=== PATIENT | female | born 1960 | race Caucasian/White ===

== ENCOUNTER 2016-05-17 07:01 | Day surgery (SDC) | payer OTHER ==
[~2016-05-17 07:01] MED LIST: Lactated Ringers 1,000 ML IV SCH; Lidocaine 1%/Sod Bicarbonate in NS 8.4% 1 ML Syringe IV PRN; Sodium Chloride 0.9% 10 ML Syringe FLUSH PRN
[2016-05-17] MEDS ORDERED: Ondansetron 4 MG/2 ML SDV ONE (07:20)
[2016-05-17] MEDS ORDERED: Propofol 200 MG/20 ML SDV ONE ×3 (07:21→08:16)
[2016-05-17] MEDS ORDERED: fentaNYL 250 MCG/5 ML SDV ONE (07:21)
[2016-05-17] MEDS ORDERED: Midazolam 1 MG/ML 2 ML SDV ONE (07:21)
[2016-05-17] MEDS ORDERED: Scopolamine 1.5 MG Transdermal Patch TRDERM ONE (07:22)
[2016-05-17] MEDS ORDERED: ceFAZolin 1 GM Vial ONE (07:24)
--- NOTE | 2016-05-17 07:27 | PCM.PREANE ---
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 Respiratory: Reports: no symptoms Cardiovascular: Reports: blood pressure problem GI: Reports: no symptoms Other: Reports: easy bruising, depression, anxiety - PHYSICAL ASSESSMENT HR: 79 O2 Sat by Pulse Oximetry: 94 RR: 16 BP: 133/73 Temp: 98.3 F Height: 5 ft 5 in Weight: 89.176 kg NPO Status Date: 05/16/16 (sip of water with am pills) NPO Status Time: 21:30 ASA Class: 2 Mental Status: alert & oriented x3 Dentition: Reports: normal dentition Thyro-Mental Finger Breadths: 3 Mouth Opening Finger Breadths: 3 ROM/Head Extension: full Respiratory Status: lungs clear to auscultation bilaterally Cardiovascular Status: regular rate & rhythm, normal S1, S2, no murmur, blood pressure WNL - LAB Values: hgb 12.7 this am - ALLERGIES Allergies/Adverse Reactions: Allergies Allergy/AdvReac Type Severity Reaction Status Date / Time adhesive Allergy Cannot Verified 05/14/16 12:42 Remember latex Allergy Cannot Verified 05/14/16 12:42 Remember - BLOOD Blood Available: No - ANESTHESIA PLAN Preop Beta Elpidio: No Anesthesia Type Planned: general anesthesia - ACKNOWLEDGEMENTS Pt an appropriate candidate for the planned anesthesia: Yes Alternatives and risks of anesthesia discussed w pt/guardian: Yes Pt/Guardian understands and agree with anesthesia plan: Yes PreAnesthesia Questionnaire HEENT History: Reports: Impaired vision Cardiovascular History: Reports: Hypertension Other Cardiovascular History: palpatations, mitral valve prolapse Respiratory History: Reports: None Gastrointestinal History: Reports: GERD Genitourinary History: Reports: Other (see below) Other Genitourinary History: overactive bladder, interstitial cystitis Other OB/BYN History: Ovarian cyst, enlarged uterus, lumpectomy, vaginal irritaiton, genital warts, ovarian cryosurgery, hot flashes Other Musculoskeletal History: herniated disc Neurological History: Reports: None Psychiatric History: Reports: Depression, Other (see below) Other Psychiatric History: fatigue Endocrine/Metabolic History: Reports: None Hematologic History: Reports: None Immunologic History: Reports: None Oncologic (Cancer) History: Reports: Breast Dermatologic History: Reports: Other (see below) Other Dermatologic History: skin lesion, wart removal - Past Surgical History Head Surgeries/Procedures: HEENT Surgical History: Reports: Oral surgery GI Surgical History: Reports: Colonoscopy, Hernia, inguinal Female Surgical History: Reports: Breast reduction Other Musculoskeletal Surgeries/Procedures:: herniated disc repair x2, L ankle surgery with hardware, R wrist ganglion excision Oncologic Surgical History: Reports: Lumpectomy - SUBSTANCE USE Smoking Status *Q: Never Smoker Tobacco Use Within Last Twelve Months: No Second Hand Smoke Exposure: No Days Per Week of Alcohol Use: 0 Recreational Drug Use History: No - HOME MEDS Home Medications: Home Meds Tamoxifen [Nolvadex] 10 mg PO BID 11/29/14 [History] Zolpidem [Ambien] 10 mg PO DAILY PRN 11/29/14 [History] Hydrochlorothiazide 12.5 mg PO DAILY 12/04/14 [History] Venlafaxine [Effexor XR] 225 mg PO DAILY 12/04/14 [History] Ascorbic Acid [Vitamin C] 1 tab PO DAILY 05/14/16 [History] Cholecalciferol (Vitamin D3) [Vitamin D3] 1 tab PO DAILY 05/14/16 [History] Indomethacin [Indocin] 1 cap PO TID PRN 05/14/16 [History] Oxybutynin Chloride [Oxybutynin Chloride ER] 1 tab PO DAILY 05/14/16 [History] - CURRENT (IN HOUSE) MEDS Current Meds: Current Medications Lactated Ringer's (Ringers, Lactated) 1,000 mls @ 125 mls/hr IV ASDIRECTED MICHAEL Stop: 05/17/16 23:00 Lidocaine/Sodium Bicarbonate (Buffered Lidocaine 1% In Ns 8.4%) 0.25 ml IV ONETIME PRN PRN Reason: Prior to IV Start Stop: 05/17/16 18:00 Sodium Chloride (Saline Flush) 10 ml FLUSH ASDIRECTED PRN PRN Reason: Keep Vein Open Stop: 05/17/16 18:00 Discontinued Medications Cefazolin Sodium (Ancef) Confirm Administered Dose 2 gm .ROUTE .STK-MED ONE Stop: 05/17/16 07:25 Fentanyl (Sublimaze) Confirm Administered Dose 250 mcg .ROUTE .STK-MED ONE Stop: 05/17/16 07:22 Midazolam HCl (Versed 1 Mg/Ml) Confirm Administered Dose 2 mg .ROUTE .STK-MED ONE Stop: 05/17/16 07:22 Ondansetron HCl (Zofran) Confirm Administered Dose 4 mg .ROUTE .STK-MED ONE Stop: 05/17/16 07:21 Propofol (Diprivan 20 Ml) Confirm Administered Dose 200 mg .ROUTE .STK-MED ONE Stop: 05/17/16 07:22
[2016-05-17] MEDS ORDERED: Bupivacaine 0.5% 30 ML SDV ONE (07:32)
[2016-05-17] MEDS ORDERED: Rocuronium 50 MG/5 ML Vial ONE (07:42)
[2016-05-17] MEDS ORDERED: Dexamethasone 4 MG/ML SDV ONE (07:57)
[2016-05-17] MEDS ORDERED: diphenhydrAMINE 50 MG/ML SDV ONE (07:58)
[2016-05-17] MEDS ORDERED: Ondansetron 4 MG/2 ML SDV IVPUSH PRN (08:05)
[2016-05-17] MEDS ORDERED: fentaNYL 100 MCG/2 ML SDV IVPUSH PRN (08:05)
--- NOTE | 2016-05-17 08:41 | PCM.OPNOTE ---
- General Post-Op/Procedure Note Date of Surgery/Procedure: 05/17/16 Operative Procedure(s): Dilatation curettage, hysteroscopy (43549),comedone removal, (82128) Pre Op Diagnosis: Abnormal ultrasound, enlarged uterus, comedone Anesthesia Technique: General ET tube Primary Surgeon: Jean-Paul Hernandez Anesthesia Provider: Gavi Reynoso Fluid Replacement, Intraop: 700 Output, Urine Amount: 0 EBL in mLs: 3 Drain/Tube Comments:: None Complications: None Condition: Good Free Text/Narrative:: Patient was transported to operating room #1, placed under general anesthesia in the low dorsal, position with endotracheal intubation. Prepared and draped in sterile fashion. Timeout performed. Examination under anesthesia revealed approximately 10-12 week size uterus. The patient. Uterus sounded to 13 cm, dilated to accommodate the hysteroscope. Examination revealed what appeared to be atrophic endometrium with 6 images taken image 001, shows right tubal ostia area and some scarring of the endometrium. Image, 002, shows the area of left tubal ostia, which is not visualized, 003, is the fundus of the endometrium. Image, 004, shows a overview of the endometrial cavity in its 005 shows the proximal portion of the endocervical canal and the images 006, shows the distal portion in the cervical canal. Initial curetting was obtained, and sent to pathology for tissue . Sponge, and, pack, and splint sharp count correct, x2. SCDs were in place and functioning. Prior surgery. The patient had received Ancef 2 g intravenously prior surgery. Comedone of the mons, was removed by injecting 1 mL of 0.5% lidocaine for additional. Postop pain management and an elliptical incision made, removing the entire, bone. The suture. 3-0 Monocryl used to close . The skin. Dermabond applied. Patient transported post anesthesia care unit in satisfactory condition
--- NOTE | 2016-05-17 08:41 | PCM.POSTAN ---
POST ANESTHESIA ASSESSMENT - MENTAL STATUS Mental Status: alert, oriented - VITAL SIGNS Pulse Rate: 76 SaO2: 92 Resp Rate: 18 Blood Pressure: 142/82 Temperature: 97 F - RESPIRATORY Respiratory Status: respiratory rate WNL, airway patent, O2 saturation stable, supplemental oxygen - CARDIOVASCULAR CV Status: pulse rate WNL, blood pressure stable - GASTROINTESTINAL GI Status: no symptoms - PAIN Pain Score: 0 - POST OP HYDRATION Hydration Status: adequate & stable
[2016-05-17] MEDS ORDERED: Meperidine PF 50 MG/ML Syringe IVPUSH PRN (09:15)
[2016-05-17 11:00] VITALS: BP 139/78
--- NOTE | 2016-05-17 13:07 | PCM48HPAN ---
Post Anesthesia Note - EVALUATION WITHIN 48HRS OF ANESTHETIC Vital Signs in Normal Range: Yes Patient Participated in Evaluation: Yes Respiratory Function Stable: Yes Airway Patent: Yes Cardiovascular Function Stable: Yes Hydration Status Stable: Yes Pain Control Satisfactory: Yes Nausea and Vomiting Control Satisfactory: Yes Mental Status Recovered: Yes
== END 2016-05-17 11:00 | disposition home or self-care (01) ==
LOC: JD.SDS 07:01
PROVIDERS: ATTEND Obstetrics & Gynecology
PROC: 0UDB8ZZ Extraction of Endometrium, Via Natural or Artificial Opening Endoscopic (ICD-10-PCS; principal; 2016-05-17)
DX: L72.0 Epidermal cyst (principal); N85.2 Hypertrophy of uterus; I10 Essential (primary) hypertension; N32.81 Overactive bladder; Z85.3 Personal history of malignant neoplasm of breast; Z79.899 Other long term (current) drug therapy; Z91.040 Latex allergy status; Z91.048 Other nonmedicinal substance allergy status; Z98.890 Other specified postprocedural states
CPT/HCPCS: 11100; 36415; 58558; 85025; 88305; A9270; J0690; J1100; J1200; J2250; J2405; J3010; J7120; 00940; J2704

== ENCOUNTER 2017-01-11 08:25 | Observation (INO) | payer OTHER ==
--- NOTE | 2017-01-11 09:16 | PCM.PREANE ---
Preanesthetic Assessment - Procedure Proposed Procedure: TV[facility] - Anesthesia/Transfusion/Family Hx Anesthesia History: Prior Anesthesia Without Reaction Type of Anesthesia Reaction: Excessive Nausea/Vomiting Family History of Anesthesia Reaction: No Transfusion History: No Prior Transfusion(s) - Review of Systems General: No Symptoms Pulmonary: No Symptoms Cardiovascular: Other (HTN) Gastrointestinal: Other (GERD ) Neurological: No Symptoms Other: Reports: Easy Bruising, Depression - Physical Assessment NPO Status Date: 01/10/17 NPO Status Time: 20:30 Pulse: 85 O2 Sat by Pulse Oximetry: 92 Respiratory Rate: 16 Blood Pressure: 137/76 Temperature: 37.2 C Height: 1.65 m Weight: 82 kg ASA Class: 2 Mental Status: Alert & Oriented x3 Airway Class: Mallampati = 2 Dentition: Reports: Normal Dentition Thyro-Mental Finger Breadths: 3 Mouth Opening Finger Breadths: 3 ROM/Head Extension: Full Lungs: Clear to Auscultation, Normal Respiratory Effort Cardiovascular: Regular Rate, Regular Rhythm - Lab Values: Laboratory Last Values WBC 4.96 K/mm3 (3.98-10.04) 01/11/17 08:55 RBC 4.84 M/mm3 (3.98-5.22) 01/11/17 08:55 Hgb 13.4 gm/L (11.2-15.7) 01/11/17 08:55 Hct 41.5 % (34.1-44.9) 01/11/17 08:55 MCV 85.7 fl (79.4-94.8) 01/11/17 08:55 MCH 27.7 pg (25.6-32.2) 01/11/17 08:55 MCHC 32.3 g/dl (32.2-35.5) 01/11/17 08:55 RDW Std Deviation 43.3 fL (36.4-46.3) 01/11/17 08:55 Plt Count 251 K/mm3 (182-369) 01/11/17 08:55 MPV 10.1 fl (9.4-12.3) 01/11/17 08:55 Neut % (Auto) 65.9 % (34.0-71.1) 01/11/17 08:55 Lymph % (Auto) 21.8 % (19.3-51.7) 01/11/17 08:55 [place] % (Auto) 9.9 % (4.7-12.5) 01/11/17 08:55 Eos % (Auto) 2.4 (0.7-5.8) 01/11/17 08:55 Baso % (Auto) 0.0 % (0.1-1.2) L 01/11/17 08:55 Neut # (Auto) 3.27 K/mm3 (1.56-6.13) 01/11/17 08:55 Lymph # (Auto) 1.08 K/mm3 (1.18-3.74) L 01/11/17 08:55 Bulloch # (Auto) 0.49 K/mm3 (0.24-0.36) H 01/11/17 08:55 Eos # (Auto) 0.12 K/mm3 (0.04-0.36) 01/11/17 08:55 Baso # (Auto) 0.00 K/mm3 (0.01-0.08) L 01/11/17 08:55 - Allergies Allergies/Adverse Reactions: Allergies Allergy/AdvReac Type Severity Reaction Status Date / Time latex Allergy Itching Verified 01/10/17 14:14 - Blood Blood Available: No Product(s) Available: None - Anesthesia Plan Pre-Op Medication Ordered: None - Acknowledgements Anesthesia Type Planned: General Anesthesia Pt an Appropriate Candidate for the Planned Anesthesia: Yes Alternatives and Risks of Anesthesia Discussed w Pt/Guardian: Yes Pt/Guardian Understands and Agrees with Anesthesia Plan: Yes PreAnesthesia Questionnaire HEENT History: Reports: Impaired Vision Cardiovascular History: Reports: Hypertension, Other (See Below) Other Cardiovascular History: palpatations, mitral valve prolapse Respiratory History: Reports: None Gastrointestinal History: Reports: GERD Genitourinary History: Reports: Other (See Below) Other Genitourinary History: overactive bladder, interstitial cystitis Other OB/BYN History: Ovarian cyst, enlarged uterus, lumpectomy, vaginal irritaiton, genital warts, ovarian cryosurgery, hot flashes, cystocele, rectocele, conedome, thickened endometrium Other Musculoskeletal History: herniated disc Neurological History: Reports: None Psychiatric History: Reports: Depression, Other (See Below) Other Psychiatric History: fatigue Endocrine/Metabolic History: Reports: None Hematologic History: Reports: None Immunologic History: Reports: None Oncologic (Cancer) History: Reports: Breast Dermatologic History: Reports: Other (See Below) Other Dermatologic History: skin lesion, wart removal - Past Surgical History HEENT Surgical History: Reports: Oral Surgery Respiratory Surgical History: Reports: None GI Surgical History: Reports: Colonoscopy, Hernia, Inguinal Female Surgical History: Reports: Breast Reduction, Cervical Cryotherapy, D&C Endocrine Surgical History: Reports: None Neurological Surgical History: Reports: Discectomy Other Musculoskeletal Surgeries/Procedures:: herniated disc repair x2, L ankle surgery with hardware, R wrist ganglion excision Oncologic Surgical History: Reports: Biopsy of Breast, Lumpectomy - SUBSTANCE USE Smoking Status *Q: Never Smoker Tobacco Use Within Last Twelve Months: No Second Hand Smoke Exposure: No Days Per Week of Alcohol Use: 0 Recreational Drug Use History: No - HOME MEDS Home Medications: Home Meds Zolpidem [Ambien] 10 mg PO DAILY PRN 11/29/14 [History] Hydrochlorothiazide 12.5 mg PO DAILY 12/04/14 [History] Venlafaxine [Effexor XR] 75 mg PO DAILY 12/04/14 [History] Ascorbic Acid [Vitamin C] 1 tab PO DAILY 05/14/16 [History] Cholecalciferol (Vitamin D3) [Vitamin D3] 1 tab PO DAILY 05/14/16 [History] Ibuprofen [Motrin] 600 mg PO Q6H PRN 01/10/17 [History] Venlafaxine HCl [Venlafaxine ER] 150 mg PO DAILY 01/10/17 [History] - CURRENT (IN HOUSE) MEDS Current Meds: Current Medications Lactated Ringer's (Ringers, Lactated) 1,000 mls @ 125 mls/hr IV ASDIRECTED MICHAEL Lidocaine/Sodium Bicarbonate (Buffered Lidocaine 1% In Ns 8.4%) 0.25 ml IV ONETIME PRN PRN Reason: Prior to IV Start Sodium Chloride (Saline Flush) 10 ml FLUSH ASDIRECTED PRN PRN Reason: Keep Vein Open Discontinued Medications Lidocaine/Epinephrine (Xylocaine 1% With Epinephrine 1:100,000) Confirm Administered Dose 20 ml .ROUTE .STK-MED ONE Stop: 01/11/17 08:52 Sodium Chloride (Normal Saline) Confirm Administered Dose 50 ml .ROUTE .STK-MED ONE Stop: 01/11/17 08:52
[2017-01-11] MEDS ORDERED: Scopolamine 1.5 MG Transdermal Patch TRDERM ONE (09:21)
[2017-01-11] MEDS ORDERED: fentaNYL 250 MCG/5 ML SDV ONE (09:54)
[2017-01-11] MEDS ORDERED: Propofol 200 MG/20 ML SDV ONE ×6 (09:54→11:15)
[2017-01-11] MEDS ORDERED: Midazolam 1 MG/ML 2 ML SDV ONE (09:54)
[2017-01-11] MEDS ORDERED: Rocuronium 50 MG/5 ML Vial ONE (09:55)
[2017-01-11] MEDS ORDERED: Ondansetron 4 MG/2 ML SDV ONE (09:55)
[2017-01-11] MEDS ORDERED: Dexamethasone 4 MG/ML SDV ONE (09:55)
[2017-01-11] MEDS ORDERED: Lidocaine 1% 4 ML ONE (09:55)
[2017-01-11] MEDS: Sodium Chloride 0.9% 50 ML SDV ONE ×2 (10:12→10:41)
[2017-01-11] MEDS: Lidocaine 1% with EPINEPHrine 1:100,000 20 ML MDV ONE ×2 (10:12→10:41)
[2017-01-11] MEDS ORDERED: HYDROmorphone 1 MG/ML Syringe ONE ×2 (10:41→11:03)
[2017-01-11] MEDS ORDERED: Lactated Ringers 1,000 ML ONE (10:50)
[2017-01-11] MEDS ORDERED: Ketorolac 30 MG/ML SDV ONE (10:50)
--- NOTE | 2017-01-11 11:45 | PCM.OPNOTE ---
- General Post-Op/Procedure Note Date of Surgery/Procedure: 01/11/17 Operative Procedure(s): Total vaginal hysterectomy with bilateral salpingo- oophorectomy 17992 (>250 g). Mid-Urethral sling 04138 Pre Op Diagnosis: Postmenopausal bleeding, cystocele, rectocele, stress urinary incontinence Post-Op Diagnosis: Same (once the uterus was removedenlarged uterus the cystocele and rectocele were not as prominent therefore no anterior or posterior colporrhaphy performed. Only mid urethral sling.) Anesthesia Technique: General ET Tube Primary Surgeon: Jean-Paul Hernandez Secondary Surgeon: Sy Landis Anesthesia Provider: Alexa Will Smoking Pipe Coater: Leonardo Burt Reason Smoking Pipe Coater Was Necessary: Difficult vaginal surgery, retraction, patient safety, and to decrease comorbidity and co-mortality Role of Smoking Pipe Coater: Retraction, Fluid Replacement, Intraop: 1,500 Output, Urine Amount: 50 EBL in mLs: 50 Drain/Tube Comments:: None Complications: None Condition: Good Free Text/Narrative:: Patient was transported to operating room #1 and placed under general anesthesia in the low dorsal lithotomy position and prepared and draped in sterile fashion examination under anesthesia revealed uterus to be approximately 10-12 weeks size no adnexal masses appreciated on examination under anesthesia. SCDs in place and functioning prior surgery Ancef 2 g given intravenously prior surgery. Timeout performed. The patient prepared and draped in a sterile fashion. Injecting approximately 20 mL of 0.25% lidocaine with epinephrine and multiple confluent areas around the cervix, the cervix was then circumscribed. Posterior colpotomy was made without difficulty and utilizing the Enseal crossclamping activating and incising creating pedicles and proceeding cephalad the uterosacral and cardinal ligaments were crossclamped activated in size the anterior colpotomy was then performed. Proceeding in a pedicle fashion cephalad crossclamping activating and incising the uterine vasculature was crossclamped. Because of the size of the uterus the morcellation was necessary and removing approximately half of the uterus in ( uterus estimated weight over 250 g) the triple pedicles were then crossclamped with the Enseal activated and the remaining portion of the uterus removed when morcellating the uterus a large endometrial polyp was encountered this was sent separately to pathology and when completing the morcellation additional large endometrial polyp was encountered as well. The left tube and ovary and right tube and ovary were then grasped triple pedicles were crossclamped with the Enseal activated and incised and removed. There was no bleeding from any area except posterior cuff. The posterior cuff was closed running locking suture of 0 Monocryl. Reinspection of the pedicles showed no additional bleeding pursestring suture for the peritoneum was utilized to close the peritoneum and incorporate the pedicles extraperitoneally. Anterior posterior cuff and approximated with running locking suture of 0 Monocryl. After removal of the uterus cystocele and rectocele were not as prominent decision was made to not perform anterior and posterior colporrhaphy. Mid urethral sling was performed marking the area left and right side at the inferior medial portion of the pelvis injecting 2 mL of 0.25% lidocaine with epinephrine for postoperative pain management and hemostasis small incision made to allow the trochars to be passed later. Grasping approximately 1.5 cm distal to the external urethral meatus and approximately 2 cm more proximal injecting the vaginal mucosa with 0.25% lidocaine with epinephrine 2-3 mL vertical incision made undermining the urethral vaginal mucosa until the area of approximation with the area of planned insertion of the trocar. Trocar was introduced on the left side first and then the right side confirming no "buttonhole" with the dissecting finger protecting the bladder and urethra. The mesh was placed utilizing large Hegar dilator #16 the mesh was cut at the skin line after confirming adequate placement and the mesh was not twisted or convoluted. The vaginal mucosa was then closed running suture of 3-0 Monocryl. Sponge needle pack asthma sharp count correct 2. 240 mL of water placed in the bladder to aid in patient's ability to void postoperatively and possibly go home. Patient was transported postanesthesia care unit in satisfactory condition. Talked with the patient's daughter ([place]).
--- NOTE | 2017-01-11 11:46 | PCM.POSTAN ---
POST ANESTHESIA ASSESSMENT - MENTAL STATUS Mental Status: Alert, Oriented - VITAL SIGNS Pulse Rate: 83 SaO2: 93 Resp Rate: 14 Blood Pressure: 145/75 Temperature: 36.9 C - RESPIRATORY Respiratory Status: Respiratory Rate WNL, Airway Patent, O2 Saturation Stable, Supplemental Oxygen - CARDIOVASCULAR CV Status: Pulse Rate WNL, Blood Pressure Stable - GASTROINTESTINAL GI Status: No Symptoms - PAIN Pain Score: 0 - POST OP HYDRATION Hydration Status: Adequate & Stable
[2017-01-11] MEDS ORDERED: fentaNYL 100 MCG/2 ML SDV IVPUSH PRN (11:47)
[2017-01-11] MEDS ORDERED: Ondansetron 4 MG/2 ML SDV IVPUSH PRN ×2 (11:47→17:04)
[2017-01-11] MEDS: HYDROmorphone 0.5 MG/0.5 ML Syringe IVPUSH PRN ×2 (14:09→16:08)
[2017-01-11] MEDS ORDERED: Acetaminophen/oxyCODONE 325-5 MG Tab PO PRN (14:42)
[2017-01-11] MEDS ORDERED: Zolpidem 10 MG Tab PO PRN (16:25)
--- NOTE | 2017-01-11 16:25 | PCM.SN ---
- Free Text/Narrative Note: Day of surgery Patient has had difficulty with keeping her pulse ox greater than low 80s on room air. On O2 1 L/m nasal she was between 80 and 90 and now increased to 2 L/ m nasal cannula O2 was running about 95. Chest is clear no abnormal breath sounds pulses normal blood pressure normal normal amount of pain in the abdomen for postop patient. We'll obtain CBC in a.m. Pulmonary toilet tonight and begin tomorrow morning. Incentive spirometer every hour while awake. Toradol 30 mg IV every 6 hours per total of 4 doses. The increase Percocet to 1-2 every 4 hours when necessary pain. If no pain relief from Percocet will give 10 of morphine and 25 of Vistaril IM every 6 hours when necessary pain not relieved by Percocet. No significant vaginal bleeding. IV fluids lactated Ringer's at 125 mL per hour. Needs to ambulate this evening. SCDs in place. Bladder scan after voiding if residual >100 continue Urecholine 10 mg po q6h.
[2017-01-11] MEDS ORDERED: hydrOXYzine HCl 25 MG/ML SDV IM PRN ×2 (17:04→21:00)
[2017-01-11] MEDS ORDERED: Morphine 10 MG/ML Syringe IM SCH (17:04)
[2017-01-11] MEDS: Lactated Ringers 1,000 ML IV SCH (17:29)
[2017-01-11] MEDS ORDERED: Ketorolac 15 MG/ML SDV IVPUSH PRN (18:00)
[2017-01-11] MEDS: Albuterol 0.021% 0.63 MG/3 ML Neb Soln NEB SCH ×2 (18:40→21:04)
[2017-01-11] MEDS: Acetaminophen/oxyCODONE 325-5 MG Tab PO PRN (19:15)
[2017-01-11] MEDS: Docusate Sodium 100 MG Cap PO SCH (21:15)
[2017-01-12] MEDS: Lactated Ringers 1,000 ML IV SCH (01:32)
[2017-01-12] MEDS ORDERED: Morphine 10 MG/ML Syringe IM SCH (03:00)
[2017-01-12] MEDS: Albuterol 0.021% 0.63 MG/3 ML Neb Soln NEB SCH (03:16)
--- NOTE | 2017-01-12 08:42 | PCM.SN ---
- Free Text/Narrative Note: Was stopped day #1 Afebrile still having problems keeping her O2 sats above 90% when sleeping. Consult requested to evaluate patient for possible sleep apnea and will also discontinue narcotics IM her IV in case this is contributing to the respiratory depression. No heavy vaginal bleeding no leg cramping ambulating. Voiding without difficulty. Will reevaluate at 1700 hrs. this evening.
[2017-01-12] MEDS ORDERED: Hydrochlorothiazide 12.5 MG Cap PO SCH (09:00)
[2017-01-12] MEDS ORDERED: Venlafaxine 75 MG Cap.ER PO SCH (09:00)
[2017-01-12] MEDS ORDERED: Albuterol 0.021% 0.63 MG/3 ML Neb Soln NEB SCH (09:00)
[2017-01-12] MEDS ORDERED: VENLAFAXINE HCL 150 MG PO SCH (09:00)
[2017-01-12] MEDS ORDERED: Albuterol 0.083% 2.5 MG/3 ML Neb Soln ONE (09:03)
[2017-01-12] MEDS ORDERED: Albuterol 0.083% 2.5 MG/3 ML Neb Soln NEB SCH (09:06)
[2017-01-12] MEDS: Docusate Sodium 100 MG Cap PO SCH (09:41)
[2017-01-12] MEDS: Acetaminophen/oxyCODONE 325-5 MG Tab PO PRN ×3 (09:41→17:20)
[2017-01-12 12:40] VITALS: BP 122/58
--- NOTE | 2017-01-12 13:19 | PCM.CONS ---
H&P History of Present Illness - General Date of Service: 01/12/17 Admit Problem/Dx: Admission Diagnosis/Problem Admission Diagnosis/Problem Hypoxemia requiring supplemental oxygen Anita is a 56yo female patient of Dr. Hernandez's, [employer], s/p total vaginal hysterectomy yesterday. She has had hypoxia on supplemental oxygen since surgery. Hospitalist service has been consulted for further evaluation and opinion of hypoxia postoperatively. She has no history of lung disease, no asthma, COPD, no smoking/tobacco history , no known hx of NANCY. She denies complaints of CP, palpitations, SOB, wheezing, coughing, sore throat or any other cardiopulmonary symptomatology. Dr. Ford is her PCP with [facility] in [place]. She is a full code status. Source of Information: Patient, Other (records review) History Limitations: Reports: No Limitations Uterine Pain Score (Numeric/FACES): 5 - Related Data Allergies/Adverse Reactions: Allergies Allergy/AdvReac Type Severity Reaction Status Date / Time latex Allergy Itching Verified 01/10/17 14:14 Home Medications: Home Meds Zolpidem [Ambien] 10 mg PO DAILY PRN 11/29/14 [History] Hydrochlorothiazide 12.5 mg PO DAILY 12/04/14 [History] Venlafaxine [Effexor XR] 75 mg PO DAILY 12/04/14 [History] Ascorbic Acid [Vitamin C] 500 mg PO DAILY 05/14/16 [History] Cholecalciferol (Vitamin D3) [Vitamin D3] 1,000 unit PO DAILY 05/14/16 [History] Ibuprofen [Motrin] 600 mg PO Q6H PRN 01/10/17 [History] Venlafaxine HCl [Venlafaxine ER] 150 mg PO DAILY 01/10/17 [History] oxyCODONE HCl/Acetaminophen [Percocet 5-325 mg Tablet] 1 each PO Q6H #30 tablet 01/11/17 [Rx] Past Medical History HEENT History: Reports: Impaired Vision Cardiovascular History: Reports: Hypertension, Other (See Below) Other Cardiovascular History: palpatations, mitral valve prolapse Respiratory History: Reports: None Gastrointestinal History: Reports: GERD Genitourinary History: Reports: Other (See Below) Other Genitourinary History: overactive bladder, interstitial cystitis Other OB/BYN History: Ovarian cyst, enlarged uterus, lumpectomy, vaginal irritaiton, genital warts, ovarian cryosurgery, hot flashes, cystocele, rectocele, conedome, thickened endometrium Other Musculoskeletal History: herniated disc Neurological History: Reports: None Psychiatric History: Reports: Depression, Other (See Below) Other Psychiatric History: fatigue Endocrine/Metabolic History: Reports: None Hematologic History: Reports: None Immunologic History: Reports: None Oncologic (Cancer) History: Reports: Breast Dermatologic History: Reports: Other (See Below) Other Dermatologic History: skin lesion, wart removal - Past Surgical History HEENT Surgical History: Reports: Oral Surgery Respiratory Surgical History: Reports: None GI Surgical History: Reports: Colonoscopy, Hernia, Inguinal Female Surgical History: Reports: Breast Reduction, Cervical Cryotherapy, D&C Endocrine Surgical History: Reports: None Neurological Surgical History: Reports: Discectomy Other Musculoskeletal Surgeries/Procedures:: herniated disc repair x2, L ankle surgery with hardware, R wrist ganglion excision Oncologic Surgical History: Reports: Biopsy of Breast, Lumpectomy Social & Family History - Family History Family Medical History: Noncontributory - Tobacco Use Smoking Status *Q: Never Smoker Second Hand Smoke Exposure: No - Alcohol Use Days Per Week of Alcohol Use: 0 - Recreational Drug Use Recreational Drug Use: No Drug Use in Last 12 Months: No H&P Review of Systems - Review of Systems: Review Of Systems: See Below General: Denies: Fever, Chills HEENT: Reports: No Symptoms Pulmonary: Reports: No Symptoms. Denies: Shortness of Breath, Wheezing, Pleuritic Chest Pain, Cough, Hemoptysis Cardiovascular: Reports: No Symptoms. Denies: Chest Pain, Palpitations, Dyspnea on Exertion Gastrointestinal: Reports: No Symptoms Genitourinary: Reports: No Symptoms Neurological: Reports: No Symptoms Exam - Exam Exam: See Below - Vital Signs Vital Signs: Last Vital Signs Temp 98.4 F 01/12/17 12:37 Pulse 74 01/12/17 12:37 Resp 16 01/12/17 03:24 BP 122/58 L 01/12/17 12:37 Pulse Ox 98 01/12/17 12:37 Weight: 180 lb 12.465 oz - Exam General: Alert, Oriented, Cooperative HEENT: Conjunctiva Clear, EOMI, Hearing Intact, Pupils Equal, Pupils Reactive Neck: Supple Lungs: Clear to Auscultation, Normal Respiratory Effort. No: Crackles, Rales, Rhonchi, Wheezing Cardiovascular: Regular Rate, Regular Rhythm GI/Abdominal Exam: Normal Bowel Sounds, Soft, Non-Tender (Female) Exam: Deferred Rectal (Female) Exam: Deferred Back Exam: Normal Inspection Extremities: No Pedal Edema, Normal Capillary Refill Peripheral Pulses: 1+: Dorsalis Pedis (L), Dorsalis Pedis (R) Skin: Warm, Dry Neuro Extensive - Mental Status: Alert, Oriented x3, Normal Mood/Affect, Normal Cognition, Memory Intact Psychiatric: Alert, Normal Affect, Normal Mood - Patient Data Lab Results Last 24 hrs: Laboratory Results - last 24 hr 01/12/17 01/12/17 Range/Units 06:45 06:45 WBC 9.84 (3.98-10.04) K/mm3 RBC 4.38 (3.98-5.22) M/mm3 Hgb 12.3 (11.2-15.7) gm/L Hct 38.3 (34.1-44.9) % MCV 87.4 (79.4-94.8) fl MCH 28.1 (25.6-32.2) pg MCHC 32.1 L (32.2-35.5) g/dl RDW Std Deviation 44.0 (36.4-46.3) fL Plt Count 234 (182-369) K/mm3 MPV 9.9 (9.4-12.3) fl Neut % (Auto) 78.6 H (34.0-71.1) % Lymph % (Auto) 13.9 L (19.3-51.7) % Swift % (Auto) 7.2 (4.7-12.5) % Eos % (Auto) 0.1 L (0.7-5.8) Baso % (Auto) 0.0 L (0.1-1.2) % Neut # (Auto) 7.73 H (1.56-6.13) K/mm3 Lymph # (Auto) 1.37 (1.18-3.74) K/mm3 Swift # (Auto) 0.71 H (0.24-0.36) K/mm3 Eos # (Auto) 0.01 L (0.04-0.36) K/mm3 Baso # (Auto) 0.00 L (0.01-0.08) K/mm3 Sodium 141 (136-145) mEq/L Potassium 4.2 (3.5-5.1) mEq/L Chloride 105 (98-107) mEq/L Carbon Dioxide 30 (21-32) mEq/L Anion Gap 10.2 (5-15) BUN 14 (7-18) mg/dL Creatinine 0.8 (0.55-1.02) mg/dL Est Cr Clr Drug Dosing 70.66 mL/min Estimated GFR (MDRD) > 60 (>60) mL/min BUN/Creatinine Ratio 17.5 (14-18) Glucose 120 H (74-106) mg/dL Calcium 8.8 (8.5-10.1) mg/dL Total Bilirubin 0.4 (0.2-1.0) mg/dL AST 22 (15-37) U/L ALT 30 (14-59) U/L Alkaline Phosphatase 80 (46-116) U/L Total Protein 6.4 (6.4-8.2) g/dl Albumin 2.9 L (3.4-5.0) g/dl Globulin 3.5 gm/dL Albumin/Globulin Ratio 0.8 L (1-2) Result Diagrams: 01/12/17 06:45 01/12/17 06:45 Consult PN Assessment/Plan POD#: 1 Procedures: Procedures APPLICATION LOWER LEG SPLINT (11/29/14) ASSAY OF MAGNESIUM (12/05/14) ASSAY OF TROPONIN QUANT (12/05/14) BIOPSY SKIN LESION (05/17/16) CHEST X-RAY 1 VIEW FRONTAL (12/05/14) COMP SCREEN MAMMOGRAM ADD-ON (02/26/15) COMPLETE CBC W/AUTO DIFF WBC (05/17/16) COMPREHEN METABOLIC PANEL (12/05/14) DXA BONE DENSITY AXIAL (09/16/15) ELECTROCARDIOGRAM TRACING (11/29/14) EMERGENCY DEPT VISIT (11/29/14) FLUOROSCOPE EXAMINATION (12/05/14) HYSTEROSCOPY BIOPSY (05/17/16) MR-STAPH DNA AMP PROBE (12/04/14) NEUROMUSCULAR REEDUCATION (12/05/14) OT EVALUATION (12/05/14) PT EVALUATION (12/05/14) ROUTINE VENIPUNCTURE (05/17/16) SMEAR WET MOUNT SALINE/INK (04/26/16) TISSUE EXAM BY PATHOLOGIST (05/17/16) TREATMENT OF ANKLE FRACTURE (12/05/14) TRICHOMONAS ASSAY W/OPTIC (04/26/16) X-RAY EXAM OF ANKLE (12/05/14) X-RAY EXAM OF FOOT (11/29/14) X-RAY EXAM OF LOWER LEG (11/29/14) (1) Postoperative hypoxia SNOMED Code(s): 689109322 Code(s): R09.02 - HYPOXEMIA; Z98.890 - OTHER SPECIFIED POSTPROCEDURAL STATES Priority: High Current Visit: Yes (2) S/P hysterectomy with oophorectomy SNOMED Code(s): 995091023 Code(s): Z90.710 - ACQUIRED ABSENCE OF BOTH CERVIX AND UTERUS; Z90.721 - ACQUIRED ABSENCE OF OVARIES, UNILATERAL Priority: High Current Visit: Yes Problem List Initiated/Reviewed/Updated: Yes My Orders Last 24 Hours: My Active Orders 01/12/17 13:10 Chest 2V [CR] Stat Plan: I/P: Postoperative hypoxia -Likely d/t anesthesia and sedation from pain medication -? undiagnosed NANCY; no hx of asthma/COPD or tobacco use -CXR obtained and is unremarkable -Increase ambulation, Morphine has been discontinued, continue to C&DB and IS Q2 hrs -Will have RT do ambulatory oxygen study and evaluate for home oxygen need -Labs stable, no cause for concerns re: hypoxia. -VSS- oxygen saturation now documented at 98% on 1L, instr nursing to wean and encourage ambulation/IS; patient weaned and is now maintaining saturations > 90%. S/P Hysterectomy with Dr. Hernandez, POD #1 -See orders per Dr. Hernandez/Primary team Patient also has intermittent hx of GERD, taking zantac PRN. This could also be contributing to hypoxia if she has silent aspiration syndrome. Reviewed this with patient and recommend follow up with PCP, could trial PPI x 2-4weeks. Will recommend f/up with PCP within one week of discharge for evaluation of possible NANCY and GERD evaluation. Recommend continue IS Q 2 hours at home and ambulation frequently throughout the day. From Hospitalist standpoint patient is okay and safe for discharge home today with above noted follow up recommendations. Patient is Full Code status. Thank you for allowing us to participate in patient's care. Please do not hesitate to contact us with other questions or concerns. Requesting Provider: Dr. Hernandez Date Consult Requested: 01/12/17 Reason for Consult: Postoperative Hypoxia Patient History Reviewed: Yes Admission H&P Reviewed: Yes Notified Requestor: Yes Time Spent (in minutes): 45
--- NOTE | 2017-01-12 14:02 | CR ---
Chest: Two views of the chest are obtained. Comparison: Prior chest x-ray of 12/06/14. Atelectasis is noted within the right lung base and within the right middle lobe. Lesser atelectasis seen within the left lung base. Upper lungs are clear. Surgical clips are seen within the right axillary region. Heart size is normal. Upper mediastinum is normal. Slightly elevated right hemidiaphragm is seen which appears as a chronic finding. Impression: 1. Bibasilar atelectasis. 2. Nothing acute is otherwise seen. Diagnostic code #3
--- NOTE | 2017-01-12 17:11 | PCM.DCSUM1 ---
Discharge Summary - Hospital Course Free Text/Narrative:: [facility] Post-Op/Procedure Note Patient Name: MARLON NO Date of : 60 Patient Status: Observation Attending Provider: Jean-Paul Hernandez Date: 01/11/17 11:39 Initialization Date: 01/11/17 11:39 - General Post-Op/Procedure Note Date of Surgery/Procedure: 01/11/17 Operative Procedure(s): Total vaginal hysterectomy with bilateral salpingo- oophorectomy 11010 (>250 g). Mid-Urethral sling 14176 Pre Op Diagnosis: Postmenopausal bleeding, cystocele, rectocele, stress urinary incontinence Post-Op Diagnosis: Same (once the uterus was removedenlarged uterus the cystocele and rectocele were not as prominent therefore no anterior or posterior colporrhaphy performed. Only mid urethral sling.) Anesthesia Technique: General ET Tube Primary Surgeon: Jean-Paul Hernandez Secondary Surgeon: Sy Landis Anesthesia Provider: Alexa Will Financial Reporting Consultant: Leonardo Burt Reason Financial Reporting Consultant Was Necessary: Difficult vaginal surgery, retraction, patient safety, and to decrease comorbidity and co-mortality Role of Financial Reporting Consultant: Retraction, Fluid Replacement, Intraop: 1,500 Output, Urine Amount: 50 EBL in mLs: 50 Drain/Tube Comments:: None Complications: None Condition: Good Free Text/Narrative:: Patient was transported to operating room #1 and placed under general anesthesia in the low dorsal lithotomy position and prepared and draped in sterile fashion examination under anesthesia revealed uterus to be approximately 10-12 weeks size no adnexal masses appreciated on examination under anesthesia. SCDs in place and functioning prior surgery Ancef 2 g given intravenously prior surgery. Timeout performed. The patient prepared and draped in a sterile fashion. Injecting approximately 20 mL of 0.25% lidocaine with epinephrine and multiple confluent areas around the cervix, the cervix was then circumscribed. Posterior colpotomy was made without difficulty and utilizing the Enseal crossclamping activating and incising creating pedicles and proceeding cephalad the uterosacral and cardinal ligaments were crossclamped activated in size the anterior colpotomy was then performed. Proceeding in a pedicle fashion cephalad crossclamping activating and incising the uterine vasculature was crossclamped. Because of the size of the uterus the morcellation was necessary and removing approximately half of the uterus in ( uterus estimated weight over 250 g) the triple pedicles were then crossclamped with the Enseal activated and the remaining portion of the uterus removed when morcellating the uterus a large endometrial polyp was encountered this was sent separately to pathology and when completing the morcellation additional large endometrial polyp was encountered as well. The left tube and ovary and right tube and ovary were then grasped triple pedicles were crossclamped with the Enseal activated and incised and removed. There was no bleeding from any area except posterior cuff. The posterior cuff was closed running locking suture of 0 Monocryl. Reinspection of the pedicles showed no additional bleeding pursestring suture for the peritoneum was utilized to close the peritoneum and incorporate the pedicles extraperitoneally. Anterior posterior cuff and approximated with running locking suture of 0 Monocryl. After removal of the uterus cystocele and rectocele were not as prominent decision was made to not perform anterior and posterior colporrhaphy. Mid urethral sling was performed marking the area left and right side at the inferior medial portion of the pelvis injecting 2 mL of 0.25% lidocaine with epinephrine for postoperative pain management and hemostasis small incision made to allow the trochars to be passed later. Grasping approximately 1.5 cm distal to the external urethral meatus and approximately 2 cm more proximal injecting the vaginal mucosa with 0.25% lidocaine with epinephrine 2-3 mL vertical incision made undermining the urethral vaginal mucosa until the area of approximation with the area of planned insertion of the trocar. Trocar was introduced on the left side first and then the right side confirming no "buttonhole" with the dissecting finger protecting the bladder and urethra. The mesh was placed utilizing large Hegar dilator #16 the mesh was cut at the skin line after confirming adequate placement and the mesh was not twisted or convoluted. The vaginal mucosa was then closed running suture of 3-0 Monocryl. Sponge needle pack asthma sharp count correct 2. 240 mL of water placed in the bladder to aid in patient's ability to void postoperatively and possibly go home. Patient was transported postanesthesia care unit in satisfactory condition. Talked with the patient's daughter ([place]). Patient able to void after surgery, but difficulty with low pO2 and seen and evaluated by Dr Pedro & Chiara Resendiz [employer]. Patient will get her PCP to perform sleep apnea studies. Percocet Rx given to patient. RTC see me 2 weeks. HPI Initial Comments: [facility] Post-Op/Procedure Note Patient Name: MARLON NO Date of : 60 Patient Status: Observation Attending Provider: Jean-Paul Hernandez Date: 01/11/17 11:39 Initialization Date: 01/11/17 11:39 - General Post-Op/Procedure Note Date of Surgery/Procedure: 01/11/17 Operative Procedure(s): Total vaginal hysterectomy with bilateral salpingo- oophorectomy 72046 (>250 g). Mid-Urethral sling 94129 Pre Op Diagnosis: Postmenopausal bleeding, cystocele, rectocele, stress urinary incontinence Post-Op Diagnosis: Same (once the uterus was removedenlarged uterus the cystocele and rectocele were not as prominent therefore no anterior or posterior colporrhaphy performed. Only mid urethral sling.) Anesthesia Technique: General ET Tube Primary Surgeon: Jean-Paul Hernandez Secondary Surgeon: Sy Landis Anesthesia Provider: Alexa Will Financial Reporting Consultant: Leonardo Burt Reason Financial Reporting Consultant Was Necessary: Difficult vaginal surgery, retraction, patient safety, and to decrease comorbidity and co-mortality Role of Financial Reporting Consultant: Retraction, Fluid Replacement, Intraop: 1,500 Output, Urine Amount: 50 EBL in mLs: 50 Drain/Tube Comments:: None Complications: None Condition: Good Free Text/Narrative:: Patient was transported to operating room #1 and placed under general anesthesia in the low dorsal lithotomy position and prepared and draped in sterile fashion examination under anesthesia revealed uterus to be approximately 10-12 weeks size no adnexal masses appreciated on examination under anesthesia. SCDs in place and functioning prior surgery Ancef 2 g given intravenously prior surgery. Timeout performed. The patient prepared and draped in a sterile fashion. Injecting approximately 20 mL of 0.25% lidocaine with epinephrine and multiple confluent areas around the cervix, the cervix was then circumscribed. Posterior colpotomy was made without difficulty and utilizing the Enseal crossclamping activating and incising creating pedicles and proceeding cephalad the uterosacral and cardinal ligaments were crossclamped activated in size the anterior colpotomy was then performed. Proceeding in a pedicle fashion cephalad crossclamping activating and incising the uterine vasculature was crossclamped. Because of the size of the uterus the morcellation was necessary and removing approximately half of the uterus in ( uterus estimated weight over 250 g) the triple pedicles were then crossclamped with the Enseal activated and the remaining portion of the uterus removed when morcellating the uterus a large endometrial polyp was encountered this was sent separately to pathology and when completing the morcellation additional large endometrial polyp was encountered as well. The left tube and ovary and right tube and ovary were then grasped triple pedicles were crossclamped with the Enseal activated and incised and removed. There was no bleeding from any area except posterior cuff. The posterior cuff was closed running locking suture of 0 Monocryl. Reinspection of the pedicles showed no additional bleeding pursestring suture for the peritoneum was utilized to close the peritoneum and incorporate the pedicles extraperitoneally. Anterior posterior cuff and approximated with running locking suture of 0 Monocryl. After removal of the uterus cystocele and rectocele were not as prominent decision was made to not perform anterior and posterior colporrhaphy. Mid urethral sling was performed marking the area left and right side at the inferior medial portion of the pelvis injecting 2 mL of 0.25% lidocaine with epinephrine for postoperative pain management and hemostasis small incision made to allow the trochars to be passed later. Grasping approximately 1.5 cm distal to the external urethral meatus and approximately 2 cm more proximal injecting the vaginal mucosa with 0.25% lidocaine with epinephrine 2-3 mL vertical incision made undermining the urethral vaginal mucosa until the area of approximation with the area of planned insertion of the trocar. Trocar was introduced on the left side first and then the right side confirming no "buttonhole" with the dissecting finger protecting the bladder and urethra. The mesh was placed utilizing large Hegar dilator #16 the mesh was cut at the skin line after confirming adequate placement and the mesh was not twisted or convoluted. The vaginal mucosa was then closed running suture of 3-0 Monocryl. Sponge needle pack asthma sharp count correct 2. 240 mL of water placed in the bladder to aid in patient's ability to void postoperatively and possibly go home. Patient was transported postanesthesia care unit in satisfactory condition. Talked with the patient's daughter ([place]). Patient able to void after surgery, but difficulty with low pO2 and seen and evaluated by Dr Pedro & Chiara Resendiz [employer]. Patient will get her PCP to perform sleep apnea studies. Percocet Rx given to patient. RTC see me 2 weeks. Brief History: [facility] . Post-Op/Procedure Note. [facility]: [id number]. Date of : Patient Status: Observation. [facility]: [id number]. Date: 01/11/17 11:39Initialization Date: 01/11/17 11:39. - General Post-Op/Procedure Note. Date of Surgery/Procedure: 01/11/17. Operative Procedure(s): Total vaginal hysterectomy with bilateral salpingo- oophorectomy 92035 (>250 g). Mid-Urethral sling 25922. Pre Op Diagnosis: Postmenopausal bleeding, cystocele, rectocele, stress urinary incontinence. Post-Op Diagnosis: Same (once the uterus was removedenlarged uterus the cystocele and rectocele were not as prominent therefore no anterior or posterior colporrhaphy performed. Only mid urethral sling.). Anesthesia Technique: General ET Tube. Primary Surgeon: Jean-Paul Hernandez. Secondary Surgeon: Sy Landis. Anesthesia Provider: Alexa Will. Financial Reporting Consultant: Leonardo Burt Reason Financial Reporting Consultant Was Necessary: Difficult vaginal surgery, retraction, patient safety, and to decrease comorbidity and co-mortality. Role of Financial Reporting Consultant: Retraction,. Fluid Replacement, Intraop: 1,500. Output, Urine Amount: 50. EBL in mLs: 50. Drain/Tube Comments:: None. Complications: None. Condition: Good. Free Text/Narrative:: Patient was transported to operating room #1 and placed under general anesthesia in the low dorsal lithotomy position and prepared and draped in sterile fashion examination under anesthesia revealed uterus to be approximately 10-12 weeks size no adnexal masses appreciated on examination under anesthesia. SCDs in place and functioning prior surgery Ancef 2 g given intravenously prior surgery. Timeout performed. The patient prepared and draped in a sterile fashion. Injecting approximately 20 mL of 0.25% lidocaine with epinephrine and multiple confluent areas around the cervix, the cervix was then circumscribed. Posterior colpotomy was made without difficulty and utilizing the Enseal crossclamping activating and incising creating pedicles and proceeding cephalad the uterosacral and cardinal ligaments were crossclamped activated in size the anterior colpotomy was then performed. Proceeding in a pedicle fashion cephalad crossclamping activating and incising the uterine vasculature was crossclamped. Because of the size of the uterus the morcellation was necessary and removing approximately half of the uterus in (uterus estimated weight over 250 g) the triple pedicles were then crossclamped with the Enseal activated and the remaining portion of the uterus removed when morcellating the uterus a large endometrial polyp was encountered this was sent separately to pathology and when completing the morcellation additional large endometrial polyp was encountered as well. The left tube and ovary and right tube and ovary were then grasped triple pedicles were crossclamped with the Enseal activated and incised and removed. There was no bleeding from any area except posterior cuff. The posterior cuff was closed running locking suture of 0 Monocryl. Reinspection of the pedicles showed no additional bleeding pursestring suture for the peritoneum was utilized to close the peritoneum and incorporate the pedicles extraperitoneally. Anterior posterior cuff and approximated with running locking suture of 0 Monocryl. After removal of the uterus cystocele and rectocele were not as prominent decision was made to not perform anterior and posterior colporrhaphy. Mid urethral sling was performed marking the area left and right side at the inferior medial portion of the pelvis injecting 2 mL of 0.25% lidocaine with epinephrine for postoperative pain management and hemostasis small incision made to allow the trochars to be passed later. Grasping approximately 1.5 cm distal to the external urethral meatus and approximately 2 cm more proximal injecting the vaginal mucosa with 0.25% lidocaine with epinephrine 2-3 mL vertical incision made undermining the urethral vaginal mucosa until the area of approximation with the area of planned insertion of the trocar. Trocar was introduced on the left side first and then the right side confirming no "buttonhole" with the dissecting finger protecting the bladder and urethra. The mesh was placed utilizing large Hegar dilator #16 the mesh was cut at the skin line after confirming adequate placement and the mesh was not twisted or convoluted. The vaginal mucosa was then closed running suture of 3-0 Monocryl. Sponge needle pack asthma sharp count correct 2. 240 mL of water placed in the bladder to aid in patient's ability to void postoperatively and possibly go home. Patient was transported postanesthesia care unit in satisfactory condition. Talked with the patient's daughter ([place]). Patient able to void after surgery, but difficulty with low pO2 and seen and evaluated by Dr Pedro & Chiara Resendiz [employer]. Patient will get her PCP to perform sleep apnea studies. Percocet Rx given to patient. RTC see me 2 weeks. - Discharge Data Discharge Date: 01/12/17 Discharge Disposition: Home, Self-Care 01 Condition: Good - Discharge Diagnosis/Problem(s) (1) Stress incontinence SNOMED Code(s): 10564870 ICD Code: N39.3 - STRESS INCONTINENCE (FEMALE) (MALE) Status: Acute Current Visit: Yes (2) Rectocele SNOMED Code(s): 796214520 ICD Code: N81.6 - RECTOCELE Status: Acute Current Visit: Yes (3) Cystocele, midline SNOMED Code(s): 965945300 ICD Code: N81.11 - CYSTOCELE, MIDLINE Status: Acute Current Visit: Yes (4) Postmenopausal bleeding SNOMED Code(s): 09743410 ICD Code: N95.0 - POSTMENOPAUSAL BLEEDING Status: Acute Current Visit: Yes (5) Enlarged uterus SNOMED Code(s): 391677824 ICD Code: N85.2 - HYPERTROPHY OF UTERUS Status: Acute Current Visit: No (6) Postoperative hypoxia SNOMED Code(s): 268388161 ICD Code: R09.02 - HYPOXEMIA; Z98.890 - OTHER SPECIFIED POSTPROCEDURAL STATES Status: Acute Priority: High Current Visit: Yes (7) S/P hysterectomy with oophorectomy SNOMED Code(s): 101746079 ICD Code: Z90.710 - ACQUIRED ABSENCE OF BOTH CERVIX AND UTERUS; Z90.721 - ACQUIRED ABSENCE OF OVARIES, UNILATERAL Status: Acute Priority: High Current Visit: Yes - Patient Summary/Data Operative Procedure(s) Performed: Total vaginal hysterectomy with bilateral salpingo-oophorectomy 09175 (>250 g). Mid-Urethral sling 02468 Complications: Postoperative hypoxia inability to keep by mouth 2 elevated without nasal O2. Patient never an distress. Patient will be evaluated for sleep apnea by her primary care physician Consults: Consultations 01/11/17 17:04 Respiratory Care Assess and Treatment [CONS] Routine Hospital Course: By postoperative hypoxia seen in consultation by Dr. Kohler/Chiara Resendiz nurse practitioner - Patient Instructions Diet: Regular Diet as Tolerated Driving: Do Not Drive (48 hours after surgery and for 48 hours after last Percocet.) Showering/Bathing: May Shower, No Tub Bathing/Swimming (6 weeks) Wound/Incision Care: Keep Operative Site/Wound Site Clean and Dry Notify Provider of: Fever, Increased Pain, Swelling and Redness, Drainage, Nausea and/or Vomiting - Discharge Plan Prescriptions/Med Rec: oxyCODONE HCl/Acetaminophen [Percocet 5-325 mg Tablet] 1 each PO Q6H #30 tablet Home Medications: Home Meds Zolpidem [Ambien] 10 mg PO DAILY PRN 11/29/14 [History] Hydrochlorothiazide 12.5 mg PO DAILY 12/04/14 [History] Venlafaxine [Effexor XR] 75 mg PO DAILY 12/04/14 [History] Ascorbic Acid [Vitamin C] 500 mg PO DAILY 05/14/16 [History] Cholecalciferol (Vitamin D3) [Vitamin D3] 1,000 unit PO DAILY 05/14/16 [History] Ibuprofen [Motrin] 600 mg PO Q6H PRN 01/10/17 [History] Venlafaxine HCl [Venlafaxine ER] 150 mg PO DAILY 01/10/17 [History] oxyCODONE HCl/Acetaminophen [Percocet 5-325 mg Tablet] 1 each PO Q6H #30 tablet 01/11/17 [Rx] Referrals: Jean-Paul Hernandez MD [Physician] - 01/25/17 2:45 pm (2 weeks postop check) - Discharge Summary/Plan Comment DC Time >30 min.: No - Patient Data Vitals - Most Recent: Last Vital Signs Temp 98.4 F 01/12/17 12:37 Pulse 74 01/12/17 12:37 Resp 16 01/12/17 03:24 BP 122/58 L 01/12/17 12:37 Pulse Ox 94 L 01/12/17 14:21 Weight - Most Recent: 180 lb 12.465 oz I&O - Last 24 hours: Intake & Output 01/12/17 01/12/17 01/12/17 06:59 14:59 22:59 Intake Total 400 890 0 Output Total 300 350 Balance 100 540 0 Lab Results - Last 24 hrs: Laboratory Results - last 24 hr 01/12/17 01/12/17 Range/Units 06:45 06:45 WBC 9.84 (3.98-10.04) K/mm3 RBC 4.38 (3.98-5.22) M/mm3 Hgb 12.3 (11.2-15.7) gm/L Hct 38.3 (34.1-44.9) % MCV 87.4 (79.4-94.8) fl MCH 28.1 (25.6-32.2) pg MCHC 32.1 L (32.2-35.5) g/dl RDW Std Deviation 44.0 (36.4-46.3) fL Plt Count 234 (182-369) K/mm3 MPV 9.9 (9.4-12.3) fl Neut % (Auto) 78.6 H (34.0-71.1) % Lymph % (Auto) 13.9 L (19.3-51.7) % Patrick % (Auto) 7.2 (4.7-12.5) % Eos % (Auto) 0.1 L (0.7-5.8) Baso % (Auto) 0.0 L (0.1-1.2) % Neut # (Auto) 7.73 H (1.56-6.13) K/mm3 Lymph # (Auto) 1.37 (1.18-3.74) K/mm3 Patrick # (Auto) 0.71 H (0.24-0.36) K/mm3 Eos # (Auto) 0.01 L (0.04-0.36) K/mm3 Baso # (Auto) 0.00 L (0.01-0.08) K/mm3 Sodium 141 (136-145) mEq/L Potassium 4.2 (3.5-5.1) mEq/L Chloride 105 (98-107) mEq/L Carbon Dioxide 30 (21-32) mEq/L Anion Gap 10.2 (5-15) BUN 14 (7-18) mg/dL Creatinine 0.8 (0.55-1.02) mg/dL Est Cr Clr Drug Dosing 70.66 mL/min Estimated GFR (MDRD) > 60 (>60) mL/min BUN/Creatinine Ratio 17.5 (14-18) Glucose 120 H (74-106) mg/dL Calcium 8.8 (8.5-10.1) mg/dL Total Bilirubin 0.4 (0.2-1.0) mg/dL AST 22 (15-37) U/L ALT 30 (14-59) U/L Alkaline Phosphatase 80 (46-116) U/L Total Protein 6.4 (6.4-8.2) g/dl Albumin 2.9 L (3.4-5.0) g/dl Globulin 3.5 gm/dL Albumin/Globulin Ratio 0.8 L (1-2) Med Orders - Current: Current Medications Albuterol (Proventil Neb Soln) 2.5 mg NEB Q6HRRT [facility] Last Admin: 01/12/17 14:21 Dose: 2.5 mg Bethanechol Chloride (Urecholine) 10 mg PO Q6H [facility] Last Admin: 01/12/17 14:04 Dose: Not Given Docusate Sodium (Colace) 100 mg PO BID [facility] Last Admin: 01/12/17 09:41 Dose: 100 mg Hydrochlorothiazide (Hydrochlorothiazide) 12.5 mg PO DAILY [facility] Last Admin: 01/12/17 12:38 Dose: 12.5 mg Hydroxyzine HCl (Vistaril) 25 mg IM Q6H PRN PRN Reason: Pain Ketorolac Tromethamine (Toradol) 30 mg IVPUSH Q8H PRN PRN Reason: Pain (moderate 4-6) Stop: 01/16/17 16:39 Last Admin: 01/11/17 17:28 Dose: 30 mg Ondansetron HCl (Zofran) 4 mg IVPUSH Q4H PRN PRN Reason: Nausea/Vomiting Oxycodone/Acetaminophen (Percocet 325-5 Mg) 2 tab PO Q4H PRN PRN Reason: Pain Last Admin: 01/12/17 14:08 Dose: 2 tab Venlafaxine HCl (Effexor Xr) 225 mg PO DAILY [facility] Last Admin: 01/12/17 12:38 Dose: 225 mg Zolpidem Tartrate (Ambien) 10 mg PO BEDTIME PRN PRN Reason: Insomnia Discontinued Medications Albuterol (Proventil Neb Soln) 0.63 mg NEB Q6HRRT [facility] Last Admin: 01/12/17 03:16 Dose: 0.63 mg Albuterol (Proventil Neb Soln) 2.5 mg NEB Q6HRRT [facility] Last Admin: 01/12/17 14:24 Dose: Not Given Albuterol (Proventil Neb Soln) Confirm Administered Dose 2.5 mg .ROUTE .STK-MED ONE Stop: 01/12/17 09:04 Last Admin: 01/12/17 09:12 Dose: 2.5 mg Bethanechol Chloride (Urecholine) 10 mg PO Q1H [facility] Stop: 01/11/17 17:26 Dexamethasone (Dexamethasone) Confirm Administered Dose 4 mg .ROUTE .STK-MED ONE Stop: 01/11/17 09:56 Fentanyl (Sublimaze) Confirm Administered Dose 250 mcg .ROUTE .STK-MED ONE Stop: 01/11/17 09:55 Fentanyl (Sublimaze) 50 mcg IVPUSH Q5M PRN PRN Reason: pain Stop: 01/11/17 18:00 Last Admin: 01/11/17 12:03 Dose: 50 mcg Hydromorphone HCl (Dilaudid) Confirm Administered Dose 1 mg .ROUTE .STK-MED ONE Stop: 01/11/17 10:42 Hydromorphone HCl (Dilaudid) Confirm Administered Dose 1 mg .ROUTE .STK-MED ONE Stop: 01/11/17 11:04 Hydromorphone HCl (Dilaudid) 0.5 mg IVPUSH Q15M PRN PRN Reason: Pain (severe 7-10) Stop: 01/11/17 18:00 Last Admin: 01/11/17 16:08 Dose: 0.5 mg Hydroxyzine HCl (Vistaril) 25 mg IM Q6H PRN PRN Reason: Pain Last Admin: 01/12/17 03:32 Dose: 25 mg Lactated Ringer's (Ringers, Lactated) 1,000 mls @ 125 mls/hr IV ASDIRECTED MICHAEL Stop: 01/11/17 23:00 Last Admin: 01/11/17 08:55 Dose: 125 mls/hr Lidocaine HCl (Xylocaine-Mpf 1%) Confirm Administered Dose 4 mls @ as directed .ROUTE .STK-MED ONE Stop: 01/11/17 09:56 Lactated Ringer's (Ringers, Lactated) Confirm Administered Dose 1,000 mls @ as directed .ROUTE .STK-MED ONE Stop: 01/11/17 10:51 Lactated Ringer's (Ringers, Lactated) 1,000 mls @ 125 mls/hr IV ASDIRECTED [facility] Last Admin: 01/12/17 01:32 Dose: 125 mls/hr Ketorolac Tromethamine (Toradol) Confirm Administered Dose 30 mg .ROUTE .STK- MED ONE Stop: 01/11/17 10:51 Lidocaine/Epinephrine (Xylocaine 1% With Epinephrine 1:100,000) Confirm Administered Dose 20 ml .ROUTE .STK-MED ONE Stop: 01/11/17 08:52 Last Admin: 01/11/17 10:12 Dose: 8 ml Lidocaine/Sodium Bicarbonate (Buffered Lidocaine 1% In Ns 8.4%) 0.25 ml IV ONETIME PRN PRN Reason: Prior to IV Start Stop: 01/11/17 18:00 Last Admin: 01/11/17 08:55 Dose: 0.25 ml Midazolam HCl (Versed 1 Mg/Ml) Confirm Administered Dose 2 mg .ROUTE .STK-MED ONE Stop: 01/11/17 09:55 Morphine Sulfate (Morphine) 10 mg IM Q6H [facility] Last Admin: 01/11/17 21:15 Dose: 10 mg Morphine Sulfate (Morphine) 10 mg IM Q6H [facility] Last Admin: 01/12/17 03:29 Dose: 10 mg Non-Formulary Medication (Venlafaxine Hcl) 150 mg PO DAILY [facility] Ondansetron HCl (Zofran) Confirm Administered Dose 4 mg .ROUTE .STK-MED ONE Stop: 01/11/17 09:56 Ondansetron HCl (Zofran) 4 mg IVPUSH ONETIME PRN PRN Reason: Nausea/Vomiting Stop: 01/11/17 18:00 Last Admin: 01/11/17 12:53 Dose: 4 mg Oxycodone/Acetaminophen (Percocet 325-5 Mg) 1 tab PO Q6H PRN PRN Reason: Pain Stop: 01/11/17 23:00 Last Admin: 01/11/17 15:03 Dose: 1 tab Propofol (Diprivan 20 Ml) Confirm Administered Dose 200 mg .ROUTE .STK-MED ONE Stop: 01/11/17 09:55 Propofol (Diprivan 20 Ml) Confirm Administered Dose 200 mg .ROUTE .STK-MED ONE Stop: 01/11/17 10:12 Propofol (Diprivan 20 Ml) Confirm Administered Dose 200 mg .ROUTE .STK-MED ONE Stop: 01/11/17 10:20 Propofol (Diprivan 20 Ml) Confirm Administered Dose 200 mg .ROUTE .STK-MED ONE Stop: 01/11/17 10:20 Propofol (Diprivan 20 Ml) Confirm Administered Dose 200 mg .ROUTE .STK-MED ONE Stop: 01/11/17 11:12 Propofol (Diprivan 20 Ml) Confirm Administered Dose 200 mg .ROUTE .STK-MED ONE Stop: 01/11/17 11:16 Rocuronium [place] (Zemuron) Confirm Administered Dose 50 mg .ROUTE .STK-MED ONE Stop: 01/11/17 09:56 Scopolamine (Transderm-Scop) 1.5 mg TRDERM ONETIME ONE Stop: 01/11/17 09:22 Last Admin: 01/11/17 09:32 Dose: 1.5 mg Sodium Chloride (Saline Flush) 10 ml FLUSH ASDIRECTED PRN PRN Reason: Keep Vein Open Stop: 01/11/17 18:00 Sodium Chloride (Normal Saline) Confirm Administered Dose 50 ml .ROUTE .STK-MED ONE Stop: 01/11/17 08:52 Last Admin: 01/11/17 10:12 Dose: 24 ml *Q Meaningful Use (DIS) - VTE *Q VTE Criteria *Q: - Stroke *Q Stroke Criteria *Q: - AMI *Q AMI Criteria *Q:
== END 2017-01-12 17:30 | disposition home or self-care (01) ==
LOC: JD.SDS 08:25 → UNDOADMOB 16:31 → JD.OB 16:31
PROVIDERS: ADMIT Obstetrics & Gynecology; ATTEND Obstetrics & Gynecology
DX: N84.0 Polyp of corpus uteri (principal); N83.8 Other noninflammatory disorders of ovary, fallopian tube and broad ligament; N39.3 Stress incontinence (female) (male); N81.11 Cystocele, midline; N81.6 Rectocele; I10 Essential (primary) hypertension; K21.9 Gastro-esophageal reflux disease without esophagitis; F32.9 Major depressive disorder, single episode, unspecified; R09.02 Hypoxemia; Z91.040 Latex allergy status; Z79.899 Other long term (current) drug therapy; Z98.890 Other specified postprocedural states; Z90.710 Acquired absence of both cervix and uterus; Z90.721 Acquired absence of ovaries, unilateral; Z72.0 Tobacco use
CPT/HCPCS: 36415; 51798; 57288; 58291; 71020; 80053; 85025; 86850; 86900; 86901; 94640; 94762; 96372; A9270; C1771; G0378; J1100; J1170; J1885; J2250; J2270; J2405; J3010; J3410; J7120; 00944; J2704

== ENCOUNTER 2018-07-16 11:08 | Emergency (ER) | payer OTHER ==
[2018-07-16 11:33] VITALS: BP 156/76
[2018-07-16] MEDS ORDERED: Sodium Chloride 0.9% 1,000 ML IV ONE (12:00)
[2018-07-16] MEDS ORDERED: Benztropine 1 MG Tab PO STA (12:00)
[2018-07-16] MEDS ORDERED: Haloperidol Lactate 5 MG/ML SDV IM ONE (12:00)
[2018-07-16] MEDS ORDERED: Ondansetron 4 MG/2 ML SDV IVPUSH ONE (12:00)
--- NOTE | 2018-07-16 12:07 | EDM.PDOC ---
ED HPI GENERAL MEDICAL PROBLEM - General Chief Complaint: General Stated Complaint: VOMITTING/DIZZY/UNABLE TO WALK Time Seen by Provider: 07/16/18 11:39 Source of Information: Reports: Patient, Family, RN Notes Reviewed History Limitations: Reports: No Limitations - History of Present Illness INITIAL COMMENTS - FREE TEXT/NARRATIVE: The patient states that she has had a right-sided headache, throbbing in character, since , 07/13/2018. The patient reports both photophobia and phonophobia, although denies visual changes, such as blurry vision, wavy lines, or flashes of light. She also denies having any neurologic symptoms, such as tingling, numbness, or weakness in the patient reports frequent similar headaches, although states that she has never had a prior medical evaluation for her headaches, and has never had an imaging study of her head. The patient also reports developing positional vertigo with associated nausea and vomiting since 08:00 yesterday morning. She states that she has had similar symptoms 2 or 3 times in the past, but has never been medically evaluated for them, either. The patient reports having a roaring sound in both of her ears since , . She denies decreased hearing or ear pain. The patient has not taken any [id number] medicines to treat any of her symptoms. The patient's PCP is at [place] - she does not recall their name. Her Oncologist is Dr. Sandip Coleman. Head Pain Score (Numeric/FACES): 10 - Related Data Allergies Allergy/AdvReac Type Severity Reaction Status Date / Time latex Allergy Itching Verified 01/10/17 14:14 Home Meds: Home Meds Zolpidem [Ambien] 10 mg PO DAILY PRN 11/29/14 [History] Venlafaxine [Effexor XR] 75 mg PO DAILY 12/04/14 [History] hydroCHLOROthiazide [Hydrochlorothiazide] 12.5 mg PO DAILY 12/04/14 [History] Ascorbic Acid [Vitamin C] 500 mg PO DAILY 05/14/16 [History] Cholecalciferol (Vitamin D3) [Vitamin D3] 1,000 unit PO DAILY 05/14/16 [History] Ibuprofen [Motrin] 600 mg PO Q6H PRN 01/10/17 [History] Venlafaxine HCl [Venlafaxine ER] 150 mg PO DAILY 01/10/17 [History] Meclizine [Antivert] 1 tab PO Q6H PRN #20 tab 07/16/18 [Rx] Ondansetron [Zofran ODT] 1 tab PO Q8H PRN #10 tab.dis 07/16/18 [Rx] Rizatriptan Benzoate [Rizatriptan] 1 tab PO Q2H PRN #3 tab.rapdis 07/16/18 [Rx] Past Medical History HEENT History: Reports: Impaired Vision Cardiovascular History: Reports: Hypertension Musculoskeletal History: Reports: Fracture (bilateral ankles) Psychiatric History: Reports: Anxiety, Depression, Other (See Below) (Insomnia) Oncologic (Cancer) History: Reports: Breast (left, dx'd 2007, s/p lumpectomy, CTx, RTx) - Past Surgical History HEENT Surgical History: Reports: Oral Surgery (wisdom teeth extraction) Female Surgical History: Reports: Breast Reconstruction (left), Cervical Cryotherapy, D&C (x 1), Hysterectomy (complete), Salpingo-Oophorectomy ( bilateral), Other (See Below) (Bladder suspension) Neurological Surgical History: Reports: Lumbar Spine (microdiscectomy x 2) Musculoskeletal Surgical History: Reports: ORIF (left ankle) Other Musculoskeletal Surgeries/Procedures:: herniated disc repair x2, L ankle surgery with hardware, R wrist ganglion excision Oncologic Surgical History: Reports: Biopsy of Breast (left), Lumpectomy (left) Social & Family History - Family History Family Medical History: Noncontributory - Tobacco Use Smoking Status *Q: Never Smoker - Caffeine Use Caffeine Use: Reports: Coffee, Energy Drinks, Soda, Tea - Alcohol Use Alcohol Use History: Yes Alcohol Use Frequency: Rarely - Recreational Drug Use Recreational Drug Use: No - Living Situation & Occupation Living situation: Reports: , Alone Occupation: Employed (advertising sales assistant) ED ROS GENERAL - Review of Systems Review Of Systems: ROS reveals no pertinent complaints other than HPI. ED EXAM, GENERAL - Physical Exam Exam: See Below Exam Limited By: No Limitations General Appearance: Alert, WD/WN, Mild Distress (Lying still with an eye mask) Eye Exam: Bilateral Eye: EOMI, Normal Inspection, PERRL Ears: Normal External Exam, Normal Canal, Hearing Grossly Normal, Normal TMs Nose: Normal Inspection, Normal Mucosa, No Blood Throat/Mouth: Normal Inspection, Normal Lips, Normal Teeth, Normal Gums, Normal Oropharynx, Normal Voice, No Airway Compromise Head: Atraumatic, Normocephalic Neck: Normal Inspection, Supple, Non-Tender, Full Range of Motion. No: Lymphadenopathy (L), Lymphadenopathy (R) Respiratory/Chest: No Respiratory Distress, Lungs Clear, Normal Breath Sounds, No Accessory Muscle Use Cardiovascular: Normal Peripheral Pulses, Regular Rate, Rhythm, No Edema, No Gallop, No JVD, No Murmur, No Rub Peripheral Pulses: 4+: Radial (L), Radial (R) GI/Abdominal: Normal Bowel Sounds, Soft, Non-Tender, No Organomegaly, No Distention, No Abnormal Bruit, No Mass (Female) Exam: Deferred Rectal (Female) Exam: Deferred Back Exam: Normal Inspection, Full Range of Motion, NT Extremities: Normal Inspection, Normal Range of Motion, No Pedal Edema, Normal Capillary Refill Neurological: Alert, Oriented, CN II-XII Intact, Normal Cognition, No Motor/ Sensory Deficits Psychiatric: Normal Affect Skin Exam: Warm, Dry, Intact, Normal Color, No Rash Course - Vital Signs Last Recorded V/S: Last Vital Signs Temp 36.1 C 07/16/18 11:31 Pulse 69 07/16/18 11:31 Resp 20 07/16/18 11:31 BP 156/76 H 07/16/18 11:31 Pulse Ox 97 07/16/18 11:31 - Orders/Labs/Meds Meds: Medications Discontinued Medications Generic Name Dose Route Start Last Admin Trade Name Khadarq PRN Reason Stop Dose Admin Benztropine Mesylate 1 mg 07/16/18 12:00 Cogentin PO 07/16/18 12:01 ONETIME STA Haloperidol Lactate 5 mg 07/16/18 12:00 07/16/18 12:35 Haldol IM 07/16/18 12:01 5 mg ONETIME ONE Administration Sodium Chloride 1,000 mls @ 999 mls/hr 07/16/18 12:00 07/16/18 12:24 Normal Saline IV 07/16/18 13:00 999 mls/hr ONETIME ONE Administration Metoclopramide HCl 10 mg 07/16/18 13:04 07/16/18 13:08 Reglan IVPUSH 07/16/18 13:05 10 mg ONETIME STA Administration Ondansetron HCl 4 mg 07/16/18 12:00 07/16/18 12:29 Zofran IVPUSH 07/16/18 12:01 4 mg ONETIME ONE Administration - Re-Assessments/Exams Free Text/Narrative Re-Assessment/Exam: 07/16/18 12:03 The history of the patient's headache sounds to be migrainous. Since she has not had an imaging study of her head previously, I have ordered a CT scan of her head without contrast. In the meantime, we can go ahead and treat for a migraine with Haldol. The patient's vertigo sounds to be BPPV, less likely Mnire's, and while a migraine cannot cause BPPV - BPPV is a mechanical problem - I suppose it is possible that the patient's vertigo is (an unusual) manifestation of a migraine. If the patient's headache resolves with Haldol, but her vertigo remains, I can perform Beaumont-Hallpike maneuvers. 07/16/18 13:26 CT of the head without contrast is read by v[facility] as "No acute intracranial hemorrhage." 07/16/18 14:36 Following IM Haldol, the patient reports that her headache has gone down from a "10" to a "3", confirming that her headache was migrainous. I then performed the Blayne-Hallpike maneuver, and while she said that her symptoms were made worse with Beaumont-Hallpike maneuver to the left, and less so to the right, and she made a blinking motion, I did not see any nystagmus, therefore it is unclear to me if the patient is suffering from BPPV or some other form of peripheral vertigo. I will discharge the patient home with prescriptions for rizatriptan, meclizine , and Zofran, and a referral to ENT. Departure - Departure Time of Disposition: 14:38 Disposition: Home, Self-Care 01 Condition: Good Clinical Impression: Migraine headache without aura, Positional vertigo - Discharge Information *PRESCRIPTION DRUG MONITORING PROGRAM REVIEWED*: Not Applicable *COPY OF PRESCRIPTION DRUG MONITORING REPORT IN PATIENT JAMES: Not Applicable Prescriptions: Meclizine [Antivert] 1 tab PO Q6H PRN #20 tab PRN Reason: Dizziness Ondansetron [Zofran ODT] 1 tab PO Q8H PRN #10 tab.dis PRN Reason: Nausea/Vomiting Rizatriptan Benzoate [Rizatriptan] 1 tab PO Q2H PRN #3 tab.rapdis PRN Reason: Headache Instructions: Migraine Headache, [id number], Vertigo, [id number] Referrals: John Car MD [Ordering Only Provider] - WoSandip mahoney MD [Ordering Only Provider] - Forms: ED Department Discharge Additional Instructions: You were seen in the emergency room for symptoms of vertigo, nausea, vomiting, and a throbbing right-sided headache. Workup in the ER included a CT scan of your head, which returned normal. Your headache was treated with a migraine medicine and significantly improved, confirming that your headache was due to a migraine. The cause of your dizziness is unclear, but appears to be a positional vertigo. Prescriptions for the anti-migraine medicine rizatriptan, the anti-dizziness medicine meclizine, and the anti-nausea medicine Zofran have been sent to the [facility], located in the [facility]. Dissolve one tablet of rizatriptan (Maxalt) in your mouth, like a lozenge, at the earliest sign of a migraine headache. You may repeat after 2 hours, to a maximum of 3 tablets within a 24-hour period. Take one tablet of meclizine up to every 6 hours, as needed for dizziness. Be aware that meclizine will likely make you feel sleepy. Dissolve one tablet of Zofran on your tongue up to every 8 hours, as needed for nausea/vomiting. Do not drive if you are feeling vertiginous. Follow-up with the ENT Dr. John Car, in [place], at the next available appointment, for further evaluation of your vertigo. If any other problems, please do not hesitate to return to the ER.
[2018-07-16] MEDS ORDERED: Metoclopramide 10 MG/2 ML SDV IVPUSH STA (13:04)
--- NOTE | 2018-07-17 06:34 | CT ---
Head CT Technique: Multiple axial sections through the brain were obtained. Intravenous contrast was not utilized. Comparison: No prior intracranial imaging is available. Findings: Ventricles along with basal cisterns and sulci over the convexities are minimally prominent. Very minimal diminished density is noted within the periventricular white matter compatible with minimal small vessel ischemic demyelination change. No other abnormal parenchymal densities are seen. No evidence of intracranial hemorrhage. No midline shift or mass effect is seen. Bone window settings were reviewed which show no acute calvarial abnormality. Visualized sinuses are clear. Impression: 1. Nothing acute is appreciated on noncontrast head CT study. 2. Minimal senescent change. Diagnostic code #2 I agree with preliminary report from [facility], finalized on 07/16/18, 2:20 PM Central Time
== END 2018-07-16 14:58 | disposition home or self-care (01) ==
LOC: JD.ED 11:08
DX: G43.009 Migraine without aura, not intractable, without status migrainosus (principal); R42 Dizziness and giddiness; F41.9 Anxiety disorder, unspecified; F32.9 Major depressive disorder, single episode, unspecified; Z91.040 Latex allergy status; Z79.899 Other long term (current) drug therapy
CPT/HCPCS: 70450; 96361; 96372; 96374; 96375; 99284; J1630; J2405; J2765; J7040

== ENCOUNTER 2022-11-11 17:14 | Emergency (ER) | payer BC, OTHER ==
[2022-11-11 19:13] VITALS: BP 148/74; PULSE 88
== END 2022-11-11 19:10 | disposition home or self-care (01) ==
LOC: JD.ED 17:14
DX: M79.662 Pain in left lower leg (principal); G57.92 Unspecified mononeuropathy of left lower limb; I10 Essential (primary) hypertension; Z79.899 Other long term (current) drug therapy; Z91.040 Latex allergy status
CPT/HCPCS: 93971-26-LT; 93971-LT; 99283